=== PATIENT | female | born 1940 ===

== ENCOUNTER 2016-09-04 06:10 | Day surgery (SDC) | payer MEDICARE, MEDICAID ==
[2016-08-26 11:07] VITALS: BMI 23.0
--- NOTE | 2016-08-28 07:28 | HP ---
REASON FOR ADMISSION: Left heart catheterization, possible angioplasty (staged PTCA of RCA). BRIEF CLINICAL HISTORY: This is a 75-year-old female with past medical history significant for diabe yemi, hypertension, hyperlipidemia, hypothyroidism, comes with dyspnea on exertion. The patient was s cheduled for a stress test, found to be abnormal. The patient underwent cardiac catheterization on 0 07/31/2016 that revealed twenty-nine palms triple vessel disease, ischemic cardiomyopathy, CKD. Successful PTCA with a JUAN of mid LAD, successful PTCA of mid circumflex and distal circumflex. Now, the patient is admitted for a staged PTCA of RCA. PAST MEDICAL HISTORY: Significant for diabetes, hypertension, hyperlipidemia, renal insufficiency, b aseline creatinine 1.8, hypertension, hyperlipidemia. PREVIOUS CARDIAC WORKUP: The patient had cardiac catheterization and angioplasty on 07/31/2016 that revealed multivessel coronary artery disease, twenty-nine palms triple vessel disease; ischemic cardiomyopathy, CKD, who had a successful PTCA with a JUAN of mid LAD and mid circumflex and distal circumflex was don e. Today, patient is brought for a staged PTCA of RCA. At that time, cardiac catheterization revealed l eft ventricular ejection fraction 25%, end-diastolic pressure was 20 mL. CURRENT MEDICATIONS: The patient is taking at home simvastatin, vitamin B6, omeprazole, Bystolic, Tr adjenta, levothyroxine, Synthroid, insulin, Lasix, clopidogrel, chlorthalidone, Celebrex and Humira. ALLERGIES: No known drug allergies. REVIEW OF SYSTEMS: As per HPI. PHYSICAL EXAMINATION: VITAL SIGNS: Height of the patient 5 feet 3 inches. Weight of the patient is 130 pounds. Body mass index 23 kg/m2. HEENT: PERRLA. Extraocular muscles intact. NECK: Supple. No carotid bruits. No thyromegaly. CHEST: Clear to auscultation. HEART: S1, S2 regular. ABDOMEN: Soft. EXTREMITIES: Clubbing and cyanosis negative. BLOOD WORKUP: On 08/01/2016: WBC 6.6, hemoglobin 10.2, hematocrit 33.4, platelet count 181. Chemis try shows sodium 140, potassium 4, chloride 105, carbon dioxide 25, anion gap of 14, BUN 24, creatini ne 1.1. IMPRESSION: Chronic kidney disease, hypertension, hyperlipidemia, diabetes; coronary artery disease, ischemic cardiomyopathy, status post percutaneous transluminal coronary angioplasty of left anterior descending and circumflex with 3 drug-eluting stents on 07/31/2016. Today, patient brought for elec tive percutaneous transluminal coronary angioplasty of right coronary artery. Further recommendation after the cardiac catheterization. Will get the blood work. Will load with Plavix. Further recomm endation depending on the hospital course. Will follow with you. Thank you, Dr. Sourav De Dios, for providing this opportunity in taking care of this patient. Will fol low with you. Kendell Haro MD cc: [id number] TT: 08/28/2016 07:28:05 mn
[2016-09-04] MEDS ORDERED: Lidocaine 2% Inj (20ml) ONE (06:49)
[2016-09-04] MEDS ORDERED: Iodixanol 320 MG/ML 200 ML BOTTLE IV ONE (06:50)
[2016-09-04] MEDS ORDERED: Nitroglycerin 50mg in D5W 250 ML IV ONE (06:50)
[2016-09-04] MEDS ORDERED: Iodixanol 320 MG/ML 100 ML BOTTLE IV ONE (06:50)
[2016-09-04] MEDS ORDERED: Iohexol 350mgl/ml 50 ML ONE (06:51)
[2016-09-04 06:52] LABS: ADD MANUAL DIFF? NO
[2016-09-04] MEDS ORDERED: Phenylephrine 10 mg/ml Inj ONE (06:52)
[2016-09-04 06:59] LABS: BASO # 0.01 K/mm3 (0.0-2.0); BASO % 0.1 % (0.0-3.0); EOS # 0.4 (0.0-0.7); EOS % 4.8 % (1.5-5.0); GRAN # 3.58 (1.4-6.5); HEMATOCRIT 31.8 % (36.0-48.0); LYMPH # 2.7 (1.2-3.4); LYMPH % 36.9 % (22.0-35.0); MEAN CELL VOLUME 82.6 fL (80.0-105.0); MEAN CORPUSCULAR HEMOGLOBIN 25.7 pg (25.0-35.0); MEAN CORPUSCULAR HGB CONC 31.1 g/dl (31.0-37.0); MONO # 0.7 (0.1-0.6); MONO % 9.2 % (1.0-6.0); PLATELET COUNT 252 10^3/uL (120.0-450.0); RED CELL DISTRIBUTION WIDTH 20.9 % (11.5-14.5); WHITE BLOOD COUNT 7.3 10^3/ul (4.5-11.0)
[2016-09-04 07:07] LABS: INR 0.97 (0.93-1.08); PARTIAL THROMBOPLASTIN TIME 25.4 Seconds (23.7-30.8)
[2016-09-04 07:11] VITALS: O2SAT 97
[2016-09-04 07:16] LABS: CALCIUM 8.9 mg/dL (8.4-10.5); POTASSIUM 5.2 mmol/L (3.6-5.0)
[2016-09-04] MEDS ORDERED: Midazolam 2 MG/2 ML VIAL ONE (07:18)
[2016-09-04] MEDS ORDERED: Eptifibatide 20 mg/10mL Inj IVP ONE (07:57)
[2016-09-04] MEDS ORDERED: Insulin Reg-LOW-Coverage SC SCH (11:30)
[2016-09-04 12:21] VITALS: PULSE 69; RESP 20; TEMP 98.4
[2016-09-04 12:28] LABS: ADD MANUAL DIFF? NO
[2016-09-04 12:34] LABS: BASO # 0.02 K/mm3 (0.0-2.0); BASO % 0.3 % (0.0-3.0); EOS # 0.3 (0.0-0.7); EOS % 4.3 % (1.5-5.0); GRAN # 3.62 (1.4-6.5); GRAN % 55.1 % (50.0-68.0); HEMATOCRIT 30.4 % (36.0-48.0); LYMPH # 2.3 (1.2-3.4); LYMPH % 34.4 % (22.0-35.0); MEAN CELL VOLUME 82.2 fL (80.0-105.0); MEAN CORPUSCULAR HEMOGLOBIN 26.2 pg (25.0-35.0); MEAN CORPUSCULAR HGB CONC 31.9 g/dl (31.0-37.0); MEAN PLATELET VOLUME 8.9 fl (7.0-11.0); MONO # 0.4 (0.1-0.6); MONO % 5.9 % (1.0-6.0); PLATELET COUNT 222 10^3/uL (120.0-450.0); WHITE BLOOD COUNT 6.6 10^3/ul (4.5-11.0)
[2016-09-04 12:41] LABS: CALCIUM 8.6 mg/dL (8.4-10.5); POTASSIUM 4.6 mmol/L (3.6-5.0)
[2016-09-04 14:50] VITALS: BP 149/67
[2016-09-04] MEDS ORDERED: Sodium Chloride 0.9% 1,000 ML IV SCH (15:00)
--- NOTE | 2016-09-04 18:27 | CARD ---
APPROVED REPORT EKG Measurement Heart [id number] [place] [id number] <Conclusion> Normal sinus rhythm ST & T wave abnormality, consider anterolateral ischemia Abnormal ECG
--- NOTE | 2016-09-05 09:53 | CARD ---
APPROVED REPORT Procedure(s) performed: Left Heart Catheterization PTCA with Stenting of RCA with Roberto Carlos HISTORY The patient is a 75 year-old female with a history of : renal failure without dialysis, previous PCI (The PCI date was 07/31/2016), hypertension , dyslipidemia , for staged PTCA of RTCA. INDICATION The indication(s) include : positive stress test, For Staged PTCA of RCA. CASE TECHNIQUE The patient was brought electively to the Cardiac Catheterization Laboratory in a fasting state and was prepped and draped in a sterile manner. The left wrist was infiltrated with 2% Lidocaine subcutaneous anesthesia. A 6 Fr Glidesheath (Radial) sheath was inserted into the left radial artery without difficulty. Coronary angiography was performed using coronary diagnostic catheters. The left coronary system was accessed and visualized with a Diagnostic ,JL3.5,5Fr catheter. The right coronary system was accessed and visualized with a Guided 3D catheter. The left ventricle was accessed and visualized with a Pig tail catheter. Left ventricular/Aortic Valve gradient assessed on pullback. Left ventriculogram was performed in MELLO projection. The patient tolerated the procedure well and there were no complications associated with the procedure. Vessel Analysis The patient's coronary anatomy is co-dominant. The left main coronary artery is a medium size vessel with diffuse calcification noted throughout this vessel and without significant stenosis. The left main bifurcates to the left anterior descending and circumflex. The left anterior descending artery is a medium size vessel with diffuse calcification noted throughout this vessel and without significant stenosis. Patent stent in LAD The first diagonal branch is a medium size vessel with diffuse calcification noted throughout this vessel and without significant stenosis. The circumflex artery is a medium size vessel with diffuse calcification noted throughout this vessel and without significant stenosis. Patent stent The first obtuse marginal branch is a small size vessel with diffuse calcification noted throughout this vessel and without significant stenosis. The second obtuse marginal branch is a small size vessel with diffuse calcification noted throughout this vessel and without significant stenosis. The third obtuse marginal branch is a medium size vessel with diffuse calcification noted throughout this vessel and without significant stenosis. The left posterior descending artery is a medium size vessel with diffuse calcification noted throughout this vessel and without significant stenosis. The right coronary artery is a medium size vessel with diffuse calcification noted throughout this vessel and with significant stenosis. There is a 90% stenosis in the proximal to mid segment. The right posterior descending artery is a small size vessel with diffuse calcification noted throughout this vessel and without significant stenosis. Left Ventricle The left ventricle is enlarged in size with moderately contractility. Ischemic cardiomyopathy. The left ventricular ejection fraction is estimated to be 30-35%. The left ventricular end diastolic pressure is 30 mmHg. There was no gradient across the aortic valve upon pullback. PCI Technique Lesion Anticoagulation was achieved with Heparin. Percutaneous coronary intervention was performed on the mid right coronary artery. The lesion stenosis prior to intervention was 90% with BETTY 2 flow. A 6 Fr 3DRC Guide Catheter was used to engage the ostium. BALLOON DILATION A Balloon catheter 2.0 x 20 mm Sprinter RX was inserted and inflated up to 14.00atm for 9seconds. STENT DEPLOYMENT A drug-eluting stent 2.75 x 38 mm Alpine ROBERTO CARLOS was inserted and inflated up to 14.00atm for 9seconds. POST STENT DEPLOYMENT BALLOON DILATION A Balloon catheter 3.0 x 15 mm Trek RX NC was inserted and inflated up to 18.00atm for 14seconds. Final angiography reveals 0 % stenosis with BETTY 3 flow. Conclusion Patent Stent in LAD/CX , Placed on 07/31/2016. Successful PTCA with ROBERTO CARLOS in Proximal to Mid RCA. EF-35%,EDP-30 mmof Hg. Successful PTCA of RCA with ROBERTO CARLOS Recommendations Cardiac Rehabilitation ReferralDaily ASA with Plavix for at least one year Aggressive Medical Therapy F/U renal Fx closely F/u Lv Fx in 3-6 months to assess need of AICD, by MUGA LV Fx improving after first PTCA CC; Drs. Sourav De Dios / Joseph/ Michelle.
== END 2016-09-04 16:11 | disposition home or self-care (01) ==
LOC: CATH 06:10 → 2RSO 08:58 → CATH 16:11
PROVIDERS: ATTEND Internal Medicine Cardiovascular Disease
DX: I25.10 Atherosclerotic heart disease of native coronary artery without angina pectoris (principal); E78.5 Hyperlipidemia, unspecified; E03.9 Hypothyroidism, unspecified; I25.5 Ischemic cardiomyopathy; E11.22 Type 2 diabetes mellitus with diabetic chronic kidney disease; I12.9 Hypertensive chronic kidney disease with stage 1 through stage 4 chronic kidney disease, or unspecified chronic kidney disease; N18.9 Chronic kidney disease, unspecified
CPT/HCPCS: 36415; 80048; 80061; 82948; 85025; 85175; 85610; 85730; 86850; 86900; 93005; 93458; 99152; 99153; C1725 ×2; C1769 ×2; C1874; C1887 ×2; C9600; J1644 ×2; J1940; J2250; J3010; J7040; Q9967